=== PATIENT | female | born 2000 | race Caucasian/White ===

== ENCOUNTER 2022-05-20 20:34 | Emergency (ER) | payer BC ==
[~2022-05-20] VITALS: Ht 152.4 cm; Wt 70.0 kg
[2022-05-20] MEDS ORDERED: HYDROCODONE/ACETAMINOPHEN 10/325MG TABLET PO ONE (22:00)
[2022-05-20] MEDS ORDERED: TETANUS, DIPHTHERIA, PERTUSSIS VAC/PF 0.5ML (>10YR OLD) IM ONE (22:00)
[2022-05-20 22:31] VITALS: BP 135/90
== END 2022-05-20 22:45 | disposition home or self-care (01) ==
LOC: ER 20:34
DX: S61.315A Laceration without foreign body of left ring finger with damage to nail, initial encounter (principal); W26.0XXA Contact with knife, initial encounter; Y93.89 Activity, other specified; Y92.010 Kitchen of single-family (private) house as the place of occurrence of the external cause
CPT/HCPCS: 90471; 90715; 99283